=== PATIENT | female | born 1965 | race Caucasian/White ===

== ENCOUNTER 2018-05-14 15:58 | Inpatient (IN) | payer MEDICAID ==
[~2018-05-14] VITALS: Ht 165.1 cm; Wt 77.3 kg
[~2018-05-14 15:58] MED LIST: ALBU18HF2 IH; HYDR-4383 PO; METO50TA7 PO; OXCA300T4 PO; PANT40TA39 PO
[2018-05-14] MEDS ORDERED: normal saline 1000ML IV soln IV ONE (16:10)
[2018-05-14 16:45] LABS: BASOPHILS % (AUTO) 0.3 % (0-1); EOSINOPHILS # (AUTO) 0.3 X10'3 (0-0.9); EOSINOPHILS % (AUTO) 2.8 % (0-6); HEMATOCRIT 37.3 % (35.0-45.0); HEMOGLOBIN 12.6 g/dl (12.0-16.0); LYMPHOCYTES # (AUTO) 2.1 X10'3 (1.1-4.8); LYMPHOCYTES % (AUTO) 18.8 % (21-51); MEAN CORPUSCULAR HGB CONC 33.6 % (33.0-36.5); MEAN CORPUSCULAR VOLUME 100.9 FL (78-98); MEAN PLATELET VOLUME 7.3 FL (7.4-10.4); MONOCYTES # (AUTO) 1.1 X10'3 (0-0.9); MONOCYTES % (AUTO) 9.4 % (2-12); NEUTROPHILS # (AUTO) 7.7 X10'3 (1.8-7.7); NEUTROPHILS % (AUTO) 68.7 % (42-75); PLATELET COUNT 300 X10'3 (140-440); RED CELL DISTRIBUTION WIDTH 15.7 % (11.5-14.5); WHITE BLOOD COUNT 11.2 X10'3 (4.5-11.0)
[2018-05-14 16:58] LABS: ALANINE AMINOTRANSFERASE 27 U/L (12-78); ALBUMIN 3.2 G/DL (3.4-5.0); ALKALINE PHOSPHATASE 98 IU/L (46-116); ANION GAP 12 (8-16); ASPARTATE AMINO TRANSFERASE 12 U/L (10-37); BILIRUBIN,TOTAL 0.4 MG/DL (0.1-1.0); BLOOD UREA NITROGEN 27 MG/DL (7-18); BUN/CREATININE RATIO 15.8 (6.6-38.0); CALCIUM 8.5 MG/DL (8.5-10.1); CHLORIDE 105 MMOL/L (99-107); CREATININE 1.71 MG/DL (0.40-0.90); GLUCOSE 101 MG/DL (70-104); POTASSIUM 3.9 MMOL/L (3.5-5.1); SODIUM 141 MMOL/L (135-145); TOTAL CARBON DIOXIDE 24.5 MMOL/L (24-32); TOTAL PROTEIN 6.4 G/DL (6.4-8.2); eGFR 31 ML/MIN
[2018-05-14 17:01] LABS: LACTIC SEPSIS 1.4 MMOL/L (0.4-2.0)
[2018-05-14 17:23] LABS: PARTIAL THROMBOPLASTIN TIME 27 SECONDS (22-32); PROTHROMBIN TIME 10.1 SECONDS (9.0-12.0)
[2018-05-14] MEDS ORDERED: CHOL2000 PO (17:28)
[2018-05-14] MEDS ORDERED: NABU500T2 PO (17:28)
[2018-05-14] MEDS ORDERED: LORA10TA7 PO (17:28)
[2018-05-14] MEDS ORDERED: PHENYTOIN (17:28)
[2018-05-14] MEDS ORDERED: GABA-532 PO (17:28)
[2018-05-14] MEDS ORDERED: SIMV20TA5 PO (17:28)
[2018-05-14] MEDS ORDERED: HYDROcodone/acetaminophen 10/325mg tab PO ONE (17:40)
[2018-05-14] MEDS ORDERED: normal saline 1000ML IV soln IVB ONE (17:50)
[2018-05-14] MEDS ORDERED: CefTRIAXone 2gm/D5W 50ml 50 ML IV ONE (18:15)
[2018-05-14] MEDS ORDERED: morphine 2 MG/ML inj. syringe IV PRN (18:35)
[2018-05-14] MEDS ORDERED: acetaminophen 325mg tablet PO PRN (18:35)
[2018-05-14] MEDS ORDERED: ondansetron/PF 4mg/2ml inj IV PRN (18:35)
[2018-05-14] MEDS ORDERED: mag hydrox/Alum hydrox/simeth 30ml oral suspension PO PRN (18:35)
[2018-05-14] MEDS ORDERED: magnesium hydroxide 30ml (MOM) UD suspension PO PRN (18:35)
[2018-05-14 18:43] LABS: CLARITY,URINE SLIGHTLY CLOUDY (Clear); COLOR,URINE YELLOW (Yellow); GLUCOSE, URINE NEGATIVE (Neg); KETONES,URINE NEGATIVE (Neg); LEUKOCYTE ESTERASE ,URINE SMALL (Neg); NITRITES, URINE NEGATIVE (Neg); OCCULT BLOOD,URINE NEGATIVE (Neg); PROTEIN,URINE NEGATIVE (Neg); UROBILINOGEN,URINE 0.2 E.U/dL (0.2-1.0)
[2018-05-14 18:56] LABS: UA COLLECTION TYPE NON-SPECIFIED
[2018-05-14 18:58] LABS: BACTERIA,URINE 3+ /HPF (Neg); MUCUS STRANDS MANY /LPF (Neg); RBC,URINE 0-2 /HPF (0-2); SQUAMOUS EPITHELIAL CELL,UR MANY /LPF (FEW)
[2018-05-14] MEDS: normal saline 1000ml 1,000 ML IV SCH (19:24)
[2018-05-14 19:39] LABS: PHENYTOIN (DILANTIN) 2.9 UG/ML (10.0-20.0)
[2018-05-14] MEDS: morphine 2 MG/ML inj. syringe IV PRN (22:30)
[2018-05-15] VITALS (8 sets, daily range): BP systolic 123–185; BP diastolic 61–108
[2018-05-15] MEDS: HYDROcodone/acetaminophen 5mg/325mg tablet PO PRN ×4 (01:21→22:08)
[2018-05-15] MEDS: normal saline 1000ml 1,000 ML IV SCH (05:15)
[2018-05-15] MEDS: morphine 2 MG/ML inj. syringe IV PRN ×3 (05:16→19:35)
[2018-05-15 06:06] LABS: BASOPHILS % (AUTO) 0.5 % (0-1); EOSINOPHILS # (AUTO) 0.4 X10'3 (0-0.9); EOSINOPHILS % (AUTO) 4.9 % (0-6); HEMATOCRIT 34.1 % (35.0-45.0); HEMOGLOBIN 11.6 g/dl (12.0-16.0); MEAN PLATELET VOLUME 7.7 FL (7.4-10.4); MONOCYTES # (AUTO) 0.8 X10'3 (0-0.9); MONOCYTES % (AUTO) 8.5 % (2-12); NEUTROPHILS # (AUTO) 5.7 X10'3 (1.8-7.7); NEUTROPHILS % (AUTO) 64.1 % (42-75); PLATELET COUNT 263 X10'3 (140-440); RED BLOOD COUNT 3.41 X10'6 (4.20-5.60); RED CELL DISTRIBUTION WIDTH 15.3 % (11.5-14.5); WHITE BLOOD COUNT 8.9 X10'3 (4.5-11.0)
[2018-05-15 06:22] LABS: ALBUMIN 2.7 G/DL (3.4-5.0); ANION GAP 9 (8-16); BLOOD UREA NITROGEN 24 MG/DL (7-18); BUN/CREATININE RATIO 24.7 (6.6-38.0); CHLORIDE 110 MMOL/L (99-107); CREATININE 0.97 MG/DL (0.40-0.90); GLUCOSE 94 MG/DL (70-104); POTASSIUM 4.1 MMOL/L (3.5-5.1); SODIUM 143 MMOL/L (135-145); eGFR 60 ML/MIN
[2018-05-15] MEDS: enoxaparin 40mg/0.4ml syringe SUBCUT SCH (08:03)
[2018-05-15] MEDS: levoFLOXACIN-Levaquin 750MG/D5 150 ML IV SCH (08:03)
[2018-05-15] MEDS ORDERED: phenytoin sod ER 100mg capsule PO SCH (21:00)
[2018-05-15] MEDS: lactobacillus rhamnosus 10,000 MMU CELLS/CAPSULE PO SCH (22:06)
[2018-05-15] MEDS: metoprolol succinate 25mg (24-HOUR) SR. Tablet PO SCH (22:08)
[2018-05-16] VITALS: BP 165/90
[2018-05-16] MEDS: morphine 2 MG/ML inj. syringe IV PRN ×2 (02:02→10:48)
[2018-05-16 02:12] VITALS: BP 157/77
[2018-05-16 06:16] LABS: BASOPHILS % (AUTO) 0.4 % (0-1); EOSINOPHILS # (AUTO) 0.4 X10'3 (0-0.9); EOSINOPHILS % (AUTO) 4.6 % (0-6); HEMOGLOBIN 13.1 g/dl (12.0-16.0); LYMPHOCYTES # (AUTO) 1.7 X10'3 (1.1-4.8); LYMPHOCYTES % (AUTO) 22.2 % (21-51); MEAN CORPUSCULAR HEMOGLOBIN 34.3 PG (27.0-31.0); MEAN CORPUSCULAR HGB CONC 34.4 % (33.0-36.5); MEAN CORPUSCULAR VOLUME 99.7 FL (78-98); MEAN PLATELET VOLUME 7.6 FL (7.4-10.4); MONOCYTES # (AUTO) 0.6 X10'3 (0-0.9); MONOCYTES % (AUTO) 7.9 % (2-12); NEUTROPHILS # (AUTO) 5.1 X10'3 (1.8-7.7); NEUTROPHILS % (AUTO) 64.9 % (42-75); PLATELET COUNT 276 X10'3 (140-440); RED BLOOD COUNT 3.81 X10'6 (4.20-5.60); RED CELL DISTRIBUTION WIDTH 15.2 % (11.5-14.5); WHITE BLOOD COUNT 7.9 X10'3 (4.5-11.0)
[2018-05-16 06:29] LABS: ALBUMIN 3.2 G/DL (3.4-5.0); ANION GAP 8 (8-16); BLOOD UREA NITROGEN 14 MG/DL (7-18); BUN/CREATININE RATIO 19.2 (6.6-38.0); CALCIUM 9.1 MG/DL (8.5-10.1); CHLORIDE 107 MMOL/L (99-107); CREATININE 0.73 MG/DL (0.40-0.90); GLUCOSE 84 MG/DL (70-104); POTASSIUM 4.2 MMOL/L (3.5-5.1); SODIUM 142 MMOL/L (135-145); TOTAL CARBON DIOXIDE 27.4 MMOL/L (24-32); eGFR 84 ML/MIN
[2018-05-16 07:00] VITALS: BP 169/81
[2018-05-16] MEDS: HYDROcodone/acetaminophen 5mg/325mg tablet PO PRN (09:07)
[2018-05-16] MEDS: levoFLOXACIN-Levaquin 750MG/D5 150 ML IV SCH (09:07)
[2018-05-16] MEDS: metoprolol succinate 25mg (24-HOUR) SR. Tablet PO SCH (09:08)
[2018-05-16] MEDS: lactobacillus rhamnosus 10,000 MMU CELLS/CAPSULE PO SCH (09:08)
[2018-05-16] MEDS: enoxaparin 40mg/0.4ml syringe SUBCUT SCH (09:08)
[2018-05-16 11:00] VITALS: BP 133/77
[2018-05-16] MEDS ORDERED: gabapentin 300mg capsule PO SCH (13:00)
[2018-05-16] MEDS ORDERED: LEVO750T46 PO (13:08)
[2018-05-16] MEDS ORDERED: albuterol 2.5 MG/3 ML nebule NEB PRN (13:10)
[2018-05-16] MEDS ORDERED: sulindac 150mg tablet PO SCH (20:00)
[2018-05-16] MEDS ORDERED: non-formulary drug (Metoprolol Succinate* (Toprol Xl*) 50 MG) PO SCH (20:00)
[2018-05-16] MEDS ORDERED: atorvastatin 10mg tablet PO SCH (21:00)
[2018-05-17] MEDS ORDERED: PHENYTOIN 300 MG SCH (08:00)
[2018-05-17] MEDS ORDERED: pantoprazole 40mg Tablet.DR PO SCH (08:00)
== END 2018-05-16 14:36 | disposition home or self-care (01) | DRG 140 ==
LOC: ER 15:58 → ED HOLD 18:33 → SUR 3N 23:40
PROVIDERS: ADMIT Internal Medicine; ATTEND Family Medicine
DX: J44.0 Chronic obstructive pulmonary disease with (acute) lower respiratory infection (principal); J18.9 Pneumonia, unspecified organism; N17.9 Acute kidney failure, unspecified; E78.5 Hyperlipidemia, unspecified; F17.210 Nicotine dependence, cigarettes, uncomplicated; G43.909 Migraine, unspecified, not intractable, without status migrainosus; I10 Essential (primary) hypertension; I70.0 Atherosclerosis of aorta; K21.9 Gastro-esophageal reflux disease without esophagitis; F12.90 Cannabis use, unspecified, uncomplicated; F32.9 Major depressive disorder, single episode, unspecified; R55 Syncope and collapse; F41.9 Anxiety disorder, unspecified; G89.29 Other chronic pain; M19.90 Unspecified osteoarthritis, unspecified site; Z90.49 Acquired absence of other specified parts of digestive tract; Z90.710 Acquired absence of both cervix and uterus; Z98.2 Presence of cerebrospinal fluid drainage device; Z23 Encounter for immunization; Z88.0 Allergy status to penicillin; Z88.2 Allergy status to sulfonamides; Z88.8 Allergy status to other drugs, medicaments and biological substances; Z79.899 Other long term (current) drug therapy
CPT/HCPCS: 36415; 70450; 71045; 71250; 80048; 80053; 80185; 81001; 82140; 83605; 84145; 84443; 84484; 85025; 85610; 85730; 87040; 93005; 96361; 96374; 99285; J0696; J1650; J1956; J2270; J2405; J7030; Q2037

== ENCOUNTER 2022-06-07 11:26 | Emergency (ER) | payer MEDICAID ==
[~2022-06-07 11:26] MED LIST changes: +CHOL2000 PO; +GABA-532 PO; -HYDR-4383 PO; +LORA10TA7 PO; +NABU-139 PO; -OXCA300T4 PO; +PHENYTOIN; +SIMV-42 PO
== END 2022-06-07 12:43 | disposition left against medical advice (07) ==
LOC: ER 11:28
DX: R10.9 Unspecified abdominal pain (principal); Z53.21 Procedure and treatment not carried out due to patient leaving prior to being seen by health care provider

== ENCOUNTER 2024-08-12 10:53 | Emergency (ER) | payer MEDICAID ==
[~2024-08-12] VITALS: Ht 165.1 cm; Wt 77.0 kg
[2024-08-12] MEDS: ketorolac trometh 15mg/ml vial 15 MG/ML ML IM ONE (12:29)
[2024-08-12 12:55] VITALS: BP 126/92; PULSE 95; RESP 18; TEMP 98.6; O2SAT 98
== END 2024-08-12 12:56 | disposition home or self-care (01) ==
LOC: ER 10:54
DX: M79.671 Pain in right foot (principal); I10 Essential (primary) hypertension; J44.9 Chronic obstructive pulmonary disease, unspecified; K21.9 Gastro-esophageal reflux disease without esophagitis; M19.90 Unspecified osteoarthritis, unspecified site; F32.A Depression, unspecified; F41.9 Anxiety disorder, unspecified; F12.90 Cannabis use, unspecified, uncomplicated; Z88.0 Allergy status to penicillin; Z88.2 Allergy status to sulfonamides; Z91.011 Allergy to milk products; Z88.8 Allergy status to other drugs, medicaments and biological substances; Z90.49 Acquired absence of other specified parts of digestive tract; Z90.710 Acquired absence of both cervix and uterus; Z98.890 Other specified postprocedural states
CPT/HCPCS: 73630; 96372; 99283; J1885; A6449

== ENCOUNTER → 2025-03-17 | Day surgery (SDC) | payer MEDICAID ==
[2025-03-17] VITALS (9 sets, daily range): BP systolic 106–185; BP diastolic 61–93; PULSE 59–65; RESP 12–16; TEMP 98.5; O2SAT 96–99
[~2025-03-17] VITALS: Ht 165.1 cm; Wt 76.3 kg
[~2025-03-17] MED LIST changes: +ASPI-107 PO; +ATOR40TA72 PO; +CLOP75TA34 PO; +DOCU-395 PO; +HYDR-3686 PO; +HYDROcodone/acetaminophen 5mg/325mg tablet PO PRN; +LIDOcaine 1% (10mg/ml) 2ml vial ONE; +LIDOcaine 1% 30ml preserv. free vial ONE; +METO-411 PO; +NITR0.4T48 SL; +PANT40TA54 PO; +PHEN300C6 PO; +POLY510P31 PO; +RIZA10TA28 PO; +clopidogrel 300mg tablet ONE; +fentaNYL/PF 50MCG/1 ML 2ML syringe ONE; +heparin 1,000unit/ml 10ml vial 10 ML ONE; +iohexol 350 MG/ML 50ML vial IV ONE; +midazolam 1 mg/ML 2ml injection ONE; +nitroGLYCERIN 500mcg/5mL D5W 5 ML IV ONE; +ondansetron/PF 4mg/2ml inj IV PRN; +verapamil 2.5 mg/ml inj IV ONE
--- NOTE | 2025-03-17 06:51 | ELECTROCARDIOGRAPH REPORT ---
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 Dereck Vo Measurements Intervals [place] Rate: 62 P: 7 VA: 141 QRS: -15 QRSD: 93 T: 14 QT: 442 QTc: 449 Interpretive Statements Sinus rhythm Borderline left axis deviation Electronically Signed On 03-17-2025 6:54:[address] Dereck Vo Please click the below link to view image of tracing.
[2025-03-17 07:29] LABS: MEAN PLATELET VOLUME 7.7 FL (7.4-10.4); RED CELL DISTRIBUTION WIDTH 16.5 % (11.5-14.5)
[2025-03-17] MEDS: sodium bicarbonate 1meq/ml syr 150 ML in dextrose 5%-water 1,000 ML IV ONE (07:34)
[2025-03-17 07:44] LABS: CREATININE 1.24 MG/DL (0.40-0.90); INR 1.0 INR; TOTAL CARBON DIOXIDE 28.0 MMOL/L (24-32); eCRCL 44 ML/MIN; eGFR 44 ML/MIN
--- NOTE | 2025-03-17 10:55 | CARDIOLOGY REPORT ---
DATE OF SERVICE: 03/17/2025 DICTATING PHYSICIAN: CATHRYN CLEMENT DO CARDIAC CATHETERIZATION REPORT REFERRING PHYSICIAN: Jeffry Lipscomb MD. CLINICAL HISTORY: This 59-year-old woman has had recent chest pain suggestive of angina pectoris. There is a mildly abnormal pharmacologic stress test and echocardiography has demonstrated an ejection fraction in the range of 35% to 40%. The patient has previously used and has again used methamphetamine approximately one week ago. PROCEDURES PERFORMED: * Left heart catheterization * Left ventriculography * Selective coronary arteriography * IC nitroglycerin * PTCA/stent placement * 30 minutes conscious sedation supervision. * Percutaneous arteriotomy closure (Mynx closure). DESCRIPTION OF PROCEDURE: The patient was sedated with fentanyl and Versed. She was then prepared and draped in the usual manner. The right inguinal area was infiltrated with 1% lidocaine using a micropuncture set and a Seldinger technique. A 7 Yoruba sheath was placed in the common femoral artery. The artery itself was quite small in caliber. Left heart catheterization and left ventriculography were performed using a 5-Yoruba pigtail catheter. Coronary arteriography was performed using 6-Yoruba #4 left and right Mark catheters. 250 mcg of nitroglycerin were directly injected into the right coronary for suspected spasm. However, there was no change in the appearance of the vessel. PTCA/STENT PLACEMENT: The right coronary was engaged with a 6-Yoruba side-hold JR4 guiding catheter. A Choice PT2 guidewire was passed down the right coronary in position distally. A proximal lesion in question was then directly stented using a 2.5 x 15 mm Presley Severance drug-eluting stent deployed at 18 atmospheres. The stent appeared to be under deployed. Therefore, it was post dilated with a 3 x 15 mm noncompliant balloon inflated to 18 atmospheres after test injections demonstrated stability of the treated area. Final arteriography was performed. The arterial sheath was removed and hemostasis was achieved at the puncture site with a Mynx device. RESULTS: HEMODYNAMIC DATA: The left ventricular end-diastolic pressure was 17 mmHg. There was no gradient across the aortic valve. LEFT VENTRICULOGRAM: The left ventriculogram was technically satisfactory. The ejection fraction appeared to be about 40%. There was no obvious mitral regurgitation. CORONARY ARTERIOGRAPHY: The coronary arteriograms were technically satisfactory. The patient had a right dominant system. LEFT MAIN CORONARY ARTERY: The left main was a large unobstructed vessel bifurcating into the left anterior descending and circumflex coronary arteries. LEFT ANTERIOR DESCENDING CORONARY ARTERY: The LAD was a medium-sized vessel that did not have a transapical distribution. There was a [id number]-[id number] first diagonal taking its origin proximally. There was a second diagonal that was medium in size, taking its origin from the mid distal LAD. There were no obstructive lesions in the left anterior descending coronary artery. CIRCUMFLEX CORONARY ARTERY: A circumflex was a medium-sized main stem vessel with a small first obtuse marginal, a small second inferior obtuse marginal, and a very tiny posterolateral branch. There were no obstructive lesions in the circumflex coronary artery. RIGHT CORONARY ARTERY: The right coronary artery was a large main stem vessel. There was a large posterior descending branch, a medium-sized first posterolateral, and a small caliber second posterolateral. Proximally, the right coronary was narrowed by about 70%. The origin of the first posterolateral appeared to be narrowed by about 50%. PTCA/STENT PLACEMENT: Following stenting and post dilation of the proximal right coronary stent, there was no significant residual stenosis and brisk runoff distally. CONCLUSIONS: 1. Obstructive coronary artery disease, primarily manifested as a 70% proximal right coronary, 250 mcg of nitroglycerin did not change the appearance of this lesion. The patient also had about a 50% narrowing at the origin of the first posterolateral branch. 2. Successful PTCA/stent placement to the proximal right coronary. Following the intervention, there was no significant residual stenosis. ZANE flow before and after the intervention was graded as 3. 3. Left ventricular function was moderately reduced. The estimated ejection fraction was about 40%. RECOMMENDATIONS: Ongoing medical therapy. CATHRYN CLEMENT DO TID: [id number] RECEIPT: [id number] YANE HU
[2025-03-17] MEDS: HYDROcodone/acetaminophen 10/325mg tab PO PRN (10:57)
== END | disposition home or self-care (01) ==
LOC: SSTAY O 06:25
PROVIDERS: ATTEND Internal Medicine Cardiovascular Disease
DX: I25.10 Atherosclerotic heart disease of native coronary artery without angina pectoris (principal); G47.30 Sleep apnea, unspecified; I42.9 Cardiomyopathy, unspecified; Z79.899 Other long term (current) drug therapy
CPT/HCPCS: 36415; 80048; 83735; 85025; 85610; 93005; 93458; 99152; 99153; C1874; C9600; J1644; J2003; J2250; J3010; J3490; J7030; J7070; Q0163; Q9967; C1725; C1751; C1769; C1894